=== PATIENT | female | born 1950 | race Caucasian/White ===

== ENCOUNTER 2022-10-12 16:20 | Emergency (ER) | payer MEDICARE, BC ==
[~2022-10-12] VITALS: Ht 157.5 cm; Wt 66.2 kg
[~2022-10-12 16:20] MED LIST: ACETAMINOPHEN500 MG PO; ALEVE220 M1 PO; ALEVE220 MG PO; LEVOTHYROXINE25 MCG PO; LEVOTHYROXINE50 MCG PO; MOTRIN IB200 MG PO; NORCO 5-325 TA1 EACH PO; OXYCODONE-ACET1 EAC1 PO; PEPCID20 MG PO; PERCOCET 7.5-31 EACH PO; SPIRONOLACTONE50 MG PO; VITAMIN D2000 UNIT PO; VITAMIN D350 MC3 PO
[2022-10-12 19:02] VITALS: BP 194/108
== END 2022-10-12 19:08 | disposition home or self-care (01) ==
LOC: ED 16:20
DX: Z48.01 Encounter for change or removal of surgical wound dressing (principal); Z90.11 Acquired absence of right breast and nipple; Z98.890 Other specified postprocedural states; Z87.891 Personal history of nicotine dependence; Z79.899 Other long term (current) drug therapy
CPT/HCPCS: 99283

== ENCOUNTER 2022-10-25 09:43 | Emergency (ER) | payer MEDICARE, BC ==
[~2022-10-25] VITALS: Ht 157.5 cm; Wt 66.6 kg
--- OUTSIDE RECORDS SUMMARY | 2022-10-25 09:46 | XMS ---
PreManage Notification: MARJ PERRY Security Transplanter Events No recent Security Events currently on file CRITERIA MET - [facility] - 2 Visits in 30 Days CARE PROVIDERS There are no care providers on record at this time. Claudio has no Care Guidelines for this patient. [facility] VISIT COUNT (12 MO.) 2 [facility] [place] [facility]. TOTAL 2 NOTE: Visits indicate total known visits. ED/[facility] VISIT TRACKING (12 MO.) 10/25/2022 09:43 [facility] [place] TYPE: Emergency COMPLAINT: - POST SURGICAL ISSUE 10/12/2022 16:20 [facility] [place] TYPE: Emergency COMPLAINT: - POST OP PROBLEMS DIAGNOSES: - Acquired absence of right breast and nipple - Encounter for change or removal of surgical wound dressing - Other fpc (current) drug therapy - Other specified postprocedural states - Personal history of nicotine dependence INPATIENT VISIT TRACKING (12 MO.) 10/09/2022 11:47 [facility] [place] TYPE: Observation COMPLAINT: - RT TOTAL MASTECTOMY W/ SLN BX W/ METHYLENE BLUE DIAGNOSES: - Contact with and (suspected) exposure to COVID-19 - Essential (primary) hypertension - Estrogen receptor positive status [ER+] - Intraductal carcinoma in situ of right breast - Malignant neoplasm of unspecified site of right female breast - Obstructive sleep apnea (adult) (pediatric) - Personal history of malignant neoplasm of other parts of uterus [email or web address]
[2022-10-25] MEDS ORDERED: CEPHALEXIN500 M1 PO (11:50)
[2022-10-25 12:10] VITALS: BP 150/81
== END 2022-10-25 12:15 | disposition home or self-care (01) ==
LOC: ED 09:43
DX: T81.41XA Infection following a procedure, superficial incisional surgical site, initial encounter (principal); Z85.3 Personal history of malignant neoplasm of breast; Z87.891 Personal history of nicotine dependence; Z79.899 Other long term (current) drug therapy
CPT/HCPCS: 36415; 71045; 80053; 83605; 85025; 85610; 96365; 99283-25; J0696

== ENCOUNTER 2024-06-28 13:19 | Day surgery (SDC) | payer MEDICARE, BC ==
[~2024-06-28] VITALS: Ht 157.5 cm; Wt 63.1 kg
[~2024-06-28 13:19] MED LIST changes: +CEPHALEXIN500 M1 PO; +IBLOOD GLUCOSE TEST STRIP 1 EA TEST VI PRN; +LACTATED RINGER'S 1,000 ML IV SCH; +LIDOCAINE HCL 1% 5 ML SDV INJ ONE; +MIDAZOLAM HCL 5 MG/5 ML VIAL IV PRN; +fentaNYL citrate 100 MCG/2 ML VIAL IV PRN
[2024-06-28 13:38] VITALS: BP 168/78
[2024-06-28] MEDS ORDERED: ARTHRITIS PAIN150 GM TP (13:45)
[2024-06-28] MEDS ORDERED: MIDAZOLAM HCL 5 MG/5 ML VIAL ONE (15:03)
[2024-06-28] MEDS ORDERED: fentaNYL citrate 100 MCG/2 ML VIAL ONE (15:03)
[2024-06-28 16:20] VITALS: BP 121/76
--- NOTE | 2024-06-28 16:36 | NUR ---
06/28/24 1636 Sheets,Yesenia 1540 PT ARRIVED TO PACU ON RA, PT WAKES EASILY AND DENIES CONCERNS. VSS. PT EASILY FALLS BACK TO SLEEP. 1549 MD AT BEDSIDE TALKING WITH PT. PT ENCOURAGED TO PASS GAS NEEDED. PT ASLEEP OFF AND ON. 1600 PLAN OF CARE DISCUSSED. PT SIPPING WATER, PT ROLLS TO BACK AND HOB INCREASED. 1633 PT DRESSED HERSELF AND DC INSTRUCITONS GIVEN. ALL QUESTIONS ANSWERED AND PAPERWORK GIVEN. PT RIDE CALLED AND PT DC VIA WC WITH ALL BELONGINGS.
--- NOTE | 2024-06-29 12:39 | OR ---
[facility] [address], [place] [address] Signed DATE OF OPERATION: 06/28/2024 SURGEON: Julius Dee MD PREOPERATIVE DIAGNOSIS: Colon screening. POSTOPERATIVE DIAGNOSIS: Diverticula of the sigmoid. PROCEDURE: Total colonoscopy to cecum. ANESTHESIA: Intravenous sedation; fentanyl 100 mcg and Versed 5 mg. INDICATION: This 74-year-old white woman is a patient of Dr. Vides, who last underwent colonoscopy in 2011 at which point she had a hyperplastic polyp at 20 cm. She is here for surveillance colonoscopy. She understands risk of bleeding, infection, and perforation and wished to proceed. Quite notably, she has no symptoms of bleeding, diarrhea, or constipation and no family history of colon cancer. FINDINGS: The prep was excellent. Complete colonoscopy was undertaken of the cecum. There was no evidence of polyp or colitis. She did have diverticula scattered throughout the colon most dominantly in the sigmoid. DESCRIPTION OF PROCEDURE: The patient was brought to the endoscopy suite and placed in the lateral decubitus position, given intravenous sedation to the point of slurred speech and nystagmus. Digital rectal examination was normal. Full cardiopulmonary monitoring was maintained. An Olympus video colonoscope was passed in the rectum and manipulated throughout the colon ultimately intubating the cecum itself. The ileocecal valve and appendiceal orifice were normal. Scope was withdrawn from that point and examination undertaken showing no sign of abnormality other than scattered diverticula and ultimately diverticula of the sigmoid. Retroflexed view of the rectum was normal. The scope was removed and the patient was taken to recovery room in good condition. Electronically Signed By: JULIUS DEE MD 06/29/24 1239 PATIENT NAME: MARJ PERRY OPERATIVE REPORT DATE OF : 52 REPORT #: [id number] PHYSICIAN: JULIUS DEE MD PCP: MARGE VIDES DO REPORT IS CONFIDENTIAL AND NOT TO BE RELEASED WITHOUT AUTHORIZATION [facility] [address], [place] [address] Signed CONCLUDING DIAGNOSIS: Diverticulosis, no evidence of polyps. PLAN: Recommend repeat colonoscopy in 10 years, sooner if symptoms should develop. MD HAO Major/ODILIA /[id number] cc: Dr. Vides Copies: ~ Electronically Signed By: JULIUS DEE MD 06/29/24 1239 PATIENT NAME: MARJ PERRY OPERATIVE REPORT DATE OF : 52 REPORT #: [id number] PHYSICIAN: JULIUS DEE MD PCP: MARGE VIDES DO REPORT IS CONFIDENTIAL AND NOT TO BE RELEASED WITHOUT AUTHORIZATION
== END 2024-06-28 16:33 | disposition home or self-care (01) ==
LOC: OPS 13:19 → DS 13:22 → OPS 14:00
PROVIDERS: ATTEND Surgery
PROC: 0DJD8ZZ Inspection of Lower Intestinal Tract, Via Natural or Artificial Opening Endoscopic (ICD-10-PCS; principal; 2024-06-28 14:00)
DX: Z12.11 Encounter for screening for malignant neoplasm of colon (principal); K57.30 Diverticulosis of large intestine without perforation or abscess without bleeding; I10 Essential (primary) hypertension; G47.33 Obstructive sleep apnea (adult) (pediatric); Z85.42 Personal history of malignant neoplasm of other parts of uterus; Z86.0100 Personal history of colon polyps, unspecified; Z79.899 Other long term (current) drug therapy
CPT/HCPCS: 99153; G0500; J2250; J3010; J7121